=== PATIENT | male | born 1950 ===

== ENCOUNTER 2021-03-06 08:05 | Observation (INO) | payer BC, MEDICARE ==
[~2021-03-06] VITALS: Ht 177.8 cm; Wt 80.9 kg
[2021-03-06] MEDS ORDERED: PLEASE ENTER ALLERGIES MC SCH (08:30)
[2021-03-06] MEDS ORDERED: PLEASE ENTER HEIGHT AND WEIGHT MC SCH (08:30)
[2021-03-06 08:36] LABS: BASOPHILS % (AUTO) 1 % (0-1); EOSINOPHILS % (AUTO) 2 % (1-7); LYMPHOCYTES % (AUTO) 33 % (22-44); MEAN CORPUSCULAR HEMOGLOBIN 31.6 pg (27.5-34.5); MEAN CORPUSCULAR HGB CONC 34.2 g/dL (33.2-36.2); MEAN PLATELET VOLUME 8.3 fL (7.4-10.4); MONOCYTES % (AUTO) 13 % (2-9); NEUTROPHILS % (AUTO) 52 % (42-75); PLATELET COUNT 204 x10^3/uL (130-400); RED BLOOD COUNT 4.76 x10^6/uL (4.38-5.82); RED CELL DISTRIBUTION WIDTH 13.1 % (9.4-14.8)
[2021-03-06 08:49] LABS: ALANINE AMINOTRANSFERASE 29 U/L (12-78); ALBUMIN 3.3 g/dL (3.4-5.0); ANION GAP 4 mmol/L (5-15); CALCIUM 8.6 mg/dL (8.5-10.1); CHLORIDE 109 mmol/L (98-107); CREATININE 1.06 mg/dL (0.7-1.3)
[2021-03-06 08:53] LABS: ALKALINE PHOSPHATASE 68 U/L (45-117); BILIRUBIN,TOTAL 0.6 mg/dL (0.2-1.0); TOTAL PROTEIN 7.1 g/dL (6.4-8.2); TROPONIN I < 0.015 ng/mL (0.000-0.045)
[2021-03-06] MEDS ORDERED: ASPIRIN 81 MG TABLET CHEW PO ONE (09:00)
--- NOTE | 2021-03-06 09:01 | NUR ---
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
--- NOTE | 2021-03-06 09:01 | NUR ---
Pt ambulatory to room at this time with steady gait.
[2021-03-06] MEDS ORDERED: ASPIRIN 81 MG TABLET CHEW ONE (09:04)
--- NOTE | 2021-03-06 09:53 | NUR ---
Pt reports intermittent CP x1 year. Associated SOB. When asked if he feels palpitations "like his heart is beating out of his chest" he states "not exactly, but like the rhythm changes." Connected to all monitors. JOSIANE.
[2021-03-06] MEDS ORDERED: ASPI-963 PO (10:00)
[2021-03-06 10:59] VITALS: BP 120/70
[2021-03-06 11:03] VITALS: BP 120/76
[2021-03-06] MEDS ORDERED: ONDANSETRON 2MG/ML, 2ML IVPush PRN (12:00)
[2021-03-06] MEDS ORDERED: ACETAMINOPHEN 325 MG TABLET PO PRN (12:00)
[2021-03-06] MEDS ORDERED: ONDANSETRON ODT 4 MG PO PRN (12:00)
[2021-03-06 12:11] LABS: TROPONIN I < 0.015 ng/mL (0.000-0.045)
[2021-03-06 12:59] VITALS: BP 123/72
[2021-03-06] MEDS: HEPARIN 5,000 UNITS/ML, 1ML SQ SCH (17:43)
[2021-03-06 18:59] VITALS: BP 117/68
[2021-03-07 00:41] VITALS: BP 126/62
[2021-03-07] MEDS: HEPARIN 5,000 UNITS/ML, 1ML SQ SCH ×2 (01:00→04:55)
[2021-03-07 07:20] VITALS: BP 120/71
[2021-03-07] MEDS ORDERED: REGADENOSON 0.4 MG/5 ML SYRINGE ONE (08:22)
== END 2021-03-07 13:55 | disposition home or self-care (01) ==
LOC: ED 09:35 → EDIP 09:40 → INTOOBSV 09:40 → 5SO 10:58 → DCLOUNGE 03-07 13:48
PROVIDERS: ADMIT Hospitalist; ATTEND Hospitalist
DX: R07.89 Other chest pain (principal); R00.2 Palpitations; R00.1 Bradycardia, unspecified; Z79.899 Other long term (current) drug therapy; Z79.82 Long term (current) use of aspirin
CPT/HCPCS: 36415; 71045; 78452; 80053; 84484; 85025; 93005; 93017; 96372; 99285; A9502; C9898; G0378; J1644; J2785